=== PATIENT | female | born 1970 | race American Indian/Alaskan Native ===

== ENCOUNTER 2017-08-18 18:46 | Emergency (ER) | payer OTHER ==
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
[2017-08-18] MEDS ORDERED: CATAPRES PO ONE (21:51)
[2017-08-18] MEDS ORDERED: TYLENOL PO ONE (21:51)
[2017-08-18 22:17] LABS: Hemoglobin 13.2 gm/dl (10.1-14.3); Mean Corpuscular HGB Conc 31 % (30-34); Mean Corpuscular Volume 71 fl (79-97); Platelet Count 359 K/mm3 (140-440); Red Blood Count 5.89 M/mm3 (3.65-5.03)
[2017-08-18 22:22] LABS: Mean Corpuscular Hemoglobin 22 pg (28-32); Red Cell Distribution Width 20.2 % (13.2-15.2)
[2017-08-18 23:00] LABS: Alanine Aminotransferase 11 units/L (7-56); Albumin 3.8 g/dL (3.9-5); BUN/Creatinine Ratio 15; Blood Urea Nitrogen 9 mg/dL (7-17); Calcium 9.1 mg/dL (8.4-10.2); Hemolysis Index 25
[2017-08-18 23:30] LABS: Total Cells Counted 100
[2017-08-18 23:31] LABS: Basophils % (Manual) 0 % (0.0-1.8); Eosinophils % (Manual) 0 % (0.0-4.3); Platelet Estimate Consistent w Auto
--- NOTE | 2017-08-19 00:29 | Cat Scan Report ---
FINAL REPORT EXAM: CT HEAD/BRAIN WO CON HISTORY: headache, posteriorly TECHNIQUE: Routine axial imaging was obtained of the brain without IV contrast. FINDINGS: The ventricular system is appropriate in size and is symmetric. There are no attenuation abnormalities. The basal cisterns appear normal. The visualized sinuses are clear. The mastoid air cells are well pneumatized. The calvarium appears intact IMPRESSION: Within normal limits.
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
[2017-08-19 02:09] VITALS: BP 175/91
== END 2017-08-19 01:50 | disposition home or self-care (01) ==
LOC: ED 18:46
DX: M54.5 Low back pain (principal); R03.0 Elevated blood-pressure reading, without diagnosis of hypertension; V89.2XXA Person injured in unspecified motor-vehicle accident, traffic, initial encounter; M54.2 Cervicalgia; M25.519 Pain in unspecified shoulder; F17.200 Nicotine dependence, unspecified, uncomplicated; Y93.89 Activity, other specified; Y92.89 Other specified places as the place of occurrence of the external cause; Y99.8 Other external cause status
CPT/HCPCS: 36415; 70450; 71275; 72125; 72131; 80053; 84484; 84703; 85007; 85025; 99284; Q9967